=== PATIENT | male | born 1990 | race African-American/Black ===

== ENCOUNTER 2016-06-07 21:20 | Emergency (ER) | payer OTHER ==
[2016-06-07 21:28] VITALS: BP 126/71
[2016-06-07] MEDS ORDERED: PRED20TA PO (21:56)
--- NOTE | 2016-06-07 21:57 | PHYS DOC ---
Past Medical History Past Medical History: Asthma Past Surgical History: No Surgical History Alcohol Use: Rarely Drug Use: None Adult General Chief Complaint Chief Complaint: ITCHING HPI HPI Patient is a 26 year old male presents emergency Department stating around 12: 00 this afternoon he broke 100 a rash on his body. He states that it was very itchy and red. He denies new foods, no new medications no new laundry detergents or soaps. He denies any shortness of breath or difficulty breathing. Patient states he did take 2 Benadryl's prior to arrival in the itchiness seemed to have disappeared. Review of Systems Review of Systems Constitutional: Denies fever or chills [] Eyes: Denies change in visual acuity, redness, or eye pain [] HENT: Denies nasal congestion or sore throat [] Respiratory: Denies cough or shortness of breath [] Cardiovascular: No additional information not addressed in HPI [] GI: Denies abdominal pain, nausea, vomiting, bloody stools or diarrhea [] : Denies dysuria or hematuria [] Musculoskeletal: Denies back pain or joint pain [] Integument: rash denies skin lesions [] Neurologic: Denies headache, focal weakness or sensory changes [] Allergies Allergies Allergies Coded Allergies Type Severity Reaction Last Updated Verified No Known Drug Allergies 06/07/16 No Physical Exam Physical Exam Constitutional: Well developed, well nourished, no acute distress, non-toxic appearance. [] HENT: Normocephalic, atraumatic, bilateral external ears normal, oropharynx moist, no oral exudates, nose normal. [] Eyes: PERRLA, EOMI, conjunctiva normal, no discharge. [] Neck: Normal range of motion, no tenderness, supple, no stridor. [] Cardiovascular:Heart rate regular rhythm, no murmur [] Lungs & Thorax: Bilateral breath sounds clear to auscultation [] Skin: Warm, dry, no erythema, patient with redness area noted on her right arm in the axillary region. No drainage or discharge noted. No rash noted throughout the rest of the body. Back: No tenderness Extremities: No tenderness, no cyanosis, no clubbing, ROM intact, no edema. [] Neurologic: Alert and oriented X 3, normal motor function, normal sensory function, no focal deficits noted. [] Psychologic: Affect normal, judgement normal, mood normal. [] Current Patient Data Vital Signs Vital Signs Date Time Temp Pulse Resp B/P Pulse Ox O2 Delivery O2 Flow Rate FiO2 06/07/16 21:28 97.9 55 16 100 Room Air 97.9 EKG EKG [] Radiology/Procedures Radiology/Procedures [] Course & Med Decision Making Course & Med Decision Making Pertinent Labs and Imaging studies reviewed. (See chart for details) Patient will be discharged home with recommendations to continue Benadryl 25 mg every 4-6 hours. He was instructed that this medication will cause drowsiness do not take any be alert and oriented. Patient will also be provided with prednisone. Recommended him to drink plenty of fluids follow-up primary care physician as needed for signs and symptoms to return back to emergency department as been provided. Patient was provided with discharge instructions, treatment regimens and follow-up recommendations. Dragon Disclaimer Dragon Disclaimer This electronic medical record was generated, in whole or in part, using a voice recognition dictation system. Departure Departure Impression: Primary Impression: Contact dermatitis Disposition: HOME, SELF-CARE Condition: STABLE Referrals: NO PCP (PCP) Patient Instructions: Contact Dermatitis, [id number] Additional Instructions: Activity as tolerated. Benadryl 25 mg every 4-6 hours as needed for itching. Benadryl will cause drowsiness do not take any be alert and oriented. Medication as prescribed. Keep the area clean and dry. Aveeno baths may also help soothe the skin. Follow-up primary care physician as needed. Return back to emergency prior signs symptoms of become worse. Scripts Prednisone 20 Mg [id number] Mg PO DAILY #14 TAB Prov:ANA MARIA PETERSEN APRN 06/07/16 ANA MARIA PETERSEN APRN Jun 07, 2016 21:57
== END 2016-06-07 22:00 | disposition home or self-care (01) ==
LOC: ER 21:20
DX: L25.9 Unspecified contact dermatitis, unspecified cause (principal); J45.909 Unspecified asthma, uncomplicated
CPT/HCPCS: 99283